=== PATIENT | female | born 1960 | race Caucasian/White ===

== ENCOUNTER 2019-09-29 05:52 | Inpatient (IN) ==
--- NOTE | 2019-09-14 12:09 | PAT Medication Instructions ---
Medication Instructions Date of Service September 14, 2019 Home Medications amlodipine 10 mg PO QAM 09/11/19 [History Confirmed 09/11/19] baclofen 20 mg PO DAILY PRN 09/11/19 [History Confirmed 09/11/19] bupropion HCl 150 mg PO BID 09/11/19 [History Confirmed 09/11/19] carbamazepine 100 mg PO BID 09/11/19 [History Confirmed 09/11/19] dextroamphetamine-amphetamine [Adderall] 30 mg PO BID 09/11/19 [History Confirmed 09/11/19] escitalopram oxalate [Lexapro] 20 mg PO QAM 09/11/19 [History Confirmed 09/11/19] irbesartan 300 mg PO QAM 09/11/19 [History Confirmed 09/11/19] omeprazole 40 mg PO QAM 09/11/19 [History Confirmed 09/11/19] oxycodone-acetaminophen 1 tab PO Q8H PRN 09/11/19 [History Confirmed 09/11/19] topiramate [Topamax] 100 mg PO HS 09/11/19 [History Confirmed 09/11/19] DO NOT take the morning of surgery baclofen 20 mg PO DAILY PRN 09/11/19 [History Confirmed 09/11/19] carbamazepine 100 mg PO BID 09/11/19 [History Confirmed 09/11/19] dextroamphetamine-amphetamine [Adderall] 30 mg PO BID 09/11/19 [History Confirmed 09/11/19] irbesartan 300 mg PO QAM 09/11/19 [History Confirmed 09/11/19] Take morning of surgery With a small sip of water, OTHERWISE NOTHING TO EAT OR DRINK AFTER MIDNIGHT: amlodipine 10 mg PO QAM 09/11/19 [History Confirmed 09/11/19] bupropion HCl 150 mg PO BID 09/11/19 [History Confirmed 09/11/19] escitalopram oxalate [Lexapro] 20 mg PO QAM 09/11/19 [History Confirmed 09/11/19] omeprazole 40 mg PO QAM 09/11/19 [History Confirmed 09/11/19] oxycodone-acetaminophen 1 tab PO Q8H PRN (okay to take up to 4 hours prior to [place] r[place] if needed) Take evening before surgery baclofen 20 mg PO DAILY PRN (if needed) bupropion HCl 150 mg PO BID 09/11/19 [History Confirmed 09/11/19] carbamazepine 100 mg PO BID 09/11/19 [History Confirmed 09/11/19] dextroamphetamine-amphetamine [Adderall] 30 mg PO BID 09/11/19 [History Confirmed 09/11/19] oxycodone-acetaminophen 1 tab PO Q8H PRN (if needed) topiramate [Topamax] 100 mg PO HS 09/11/19 [History Confirmed 09/11/19] Other Notes If you have any questions please call us at [phone] or [phone] or [phone] or [phone]
--- NOTE | 2019-09-15 10:44 | Anesthesiology Consultation ---
Date of Service September 15, 2019 Assessment & Plan (1) Encounter for pre-operative examination: Chart Review Chart Review: Acceptable Risk for Surgery and Patient seen in Pre Admission Testing Teaching & Discussion Pre-Anesthesia Teaching/Discussion Notes: Instructed NPO after midnight before surgery,except medications with 15 cc of water. Medication instructions provided according to the PAT guidelines. History Surgery Operation Date: 09/29/19 12:45 Proposed Procedures p C5-C7 Anterior Cervical Discectomy and Fusion, Possible C4-C5, Spinal Cord Monitoring - Bert Bender DO Height/Weight Height: 5 ft 4 in Weight: 110.5 kg Allergies Allergy/AdvReac Type Severity Reaction Status Date / Time cortisone Allergy Unknown Anaphylaxis Verified 09/11/19 11:49 Medications Home Medications Medication Instructions Recorded Confirmed Last Taken amlodipine 10 mg PO QAM 09/11/19 09/11/19 Unknown baclofen 20 mg PO DAILY PRN 09/11/19 09/11/19 Unknown bupropion HCl 150 mg PO BID 09/11/19 09/11/19 Unknown carbamazepine 100 mg PO BID 09/11/19 09/11/19 Unknown dextroamphetamine-amphetamine 30 mg PO BID 09/11/19 09/11/19 Unknown [Adderall] escitalopram oxalate [Lexapro] 20 mg PO QAM 09/11/19 09/11/19 Unknown irbesartan 300 mg PO QAM 09/11/19 09/11/19 Unknown omeprazole 40 mg PO QAM 09/11/19 09/11/19 Unknown oxycodone-acetaminophen 1 tab PO Q8H PRN 09/11/19 09/11/19 Unknown topiramate [Topamax] 100 mg PO HS 09/11/19 09/11/19 Unknown Past Medical History Medical History Anxiety Depression Fibromyalgia GERD (gastroesophageal reflux disease) Hx of kidney disease related to sepsis (2015)- improved/"resolved" per patient Hypertension IBS (irritable bowel syndrome) Migraine Obesity Osteoarthritis Urinary incontinence + bladder stimulator (stimulator battery per patient and won't be replaced until after surgery- Ramsey Caputo/OR made aware) Weakness left arm/hand Exercise / Class Metabolic Activity III < 4 Walking/Shop/Light housework Past Family History Family History Father Family history of diabetes mellitus Mother Family history of diabetes mellitus Sister Family history of diabetes mellitus Past Surgical History Surgical History History of carpal tunnel release of both wrists History of meniscectomy of left knee History of meniscectomy of right knee History of partial hysterectomy History of surgery BLADDER STIMULATOR Hx laparoscopic cholecystectomy Hx of cervical spine surgery Hx of section Hx of colonoscopy Past Anesthesia History No Hx of Anesthesia Complications and No Family Hx of Anesthesia Complications History of PONV No Hx of PONV and Hx of Motion Sickness STOP BANG Total 5 Social History Smoking Status: Current every day smoker tobacco type: cigarettes Smoking cigarettes per day: 10 PER DAY Do You Dip or Chew Tobacco: No Hx Alcohol Use: No Hx Substance Use: No Review of Systems URI symptoms with congestion-- improving. Patient denies chest pain, shortness of breath, reflux, palpitations. Physical Exam Vital Signs VITALS BP 144/75 P 98 TEMP 98.2 SP02 94%RA RESP 16 PHYSICAL Mildly decreased cervical extension 2/2 cervicalgia Full TMJ range of motion. TMD 3.5 finger breaths Mallampati Score 3 Dentition: missing molars Lungs: + crackles Cardiac: regular rate and rhythm, no murmurs noted Spine: normal Carotid arteries: negative bruit Extremities: no edema Testing Laboratory Results 09/15/19 10:56 09/15/19 10:56 PT 10.1 Seconds (9.0-12.0) 09/15/19 10:56 INR 1.0 (0.9-1.1) 09/15/19 10:56 APTT 23.2 Seconds (21.0-31.0) 09/15/19 10:56 Urine Color Dark Yellow 09/15/19 10:56 Urine Appearance Cloudy (Clear) A 09/15/19 10:56 Urine pH 5.5 (4.5-7.5) 09/15/19 10:56 Ur Specific Cost 1.029 (1.000-1.030) 09/15/19 10:56 Urine Protein 1+ (Negative) H 09/15/19 10:56 Urine Glucose (UA) Negative (Negative) 09/15/19 10:56 Urine Ketones Trace (Negative) H 09/15/19 10:56 Urine Nitrite Negative (Negative) 09/15/19 10:56 Ur Leukocyte Esterase Negative (Negative) 09/15/19 10:56 Urine WBC (Auto) 5-10 /hpf (0-5) H 09/15/19 10:56 Urine RBC (Auto) 5-10 /hpf (0-4) H 09/15/19 10:56 U Hyaline Cast (Auto) Not Reportable 09/15/19 10:56 U Epithel Cells (Auto) >30 /lpf (0-5) H 09/15/19 10:56 Urine Bacteria (Auto) Negative (Negative) 09/15/19 10:56 Blood Type A Positive 09/15/19 10:56 Antibody Screen NEGATIVE 09/15/19 10:56 Electrocardiogram Date: 09/15/19 Findings: + NSR @ (93) Chest X-Ray Date: 09/15/19 Findings: + NAD
--- NOTE | 2019-09-15 11:34 | XRay Report ---
XR chest Pre-admission PA/Lat CLINICAL HISTORY: 59 years-old Female presenting with preoperative assessment, cough and congestion. TECHNIQUE: PA and lateral views of the chest were obtained. COMPARISON: 08/07/2013. FINDINGS: Cardiomediastinal silhouette normal. Lungs and pleural spaces clear. Degenerative changes of the thor acic spine. Cholecystectomy clips noted. IMPRESSION: 1. No acute cardiopulmonary disease. ACT 112: Negative or not required by law. Electronically signed by: Jay Bhardwaj M.D. 09/15/2019 11:33 AM
[2019-09-15 11:57] LABS: Basophils # (auto) 0.04 K/uL (0-0.2); Basophils % (auto) 0.4 %; Eosinophils # (auto) 0.29 K/uL (0-0.5); Eosinophils % (auto) 2.7 %; Hematocrit (blood only) 43.1 % (37-47); Hemoglobin 14.4 g/dL (12.0-16.0); Immature Granulocytes # (auto) 0.04 K/uL (0.00-0.02); Immature Granulocytes % (auto) 0.4 %; Lymphocytes # (auto) 2.43 K/uL (1.2-3.4); Lymphocytes % (auto) 22.3 %; Mean Corpuscular Hemoglobin 29.9 pg (25-34); Mean Corpuscular Hgb Conc 33.4 g/dL (32-36); Mean Corpuscular Volume 89.4 fL (80-100); Mean Platelet Volume 9.2 fL (7.4-10.4); Monocytes # (auto) 0.64 K/uL (0.11-0.59); Monocytes % (auto) 5.9 %; Neutrophils # (auto) 7.45 K/uL (1.4-6.5); Neutrophils % (auto) 68.3 %; Platelet Count 343 K/uL (130-400); RDW Coefficient of Variation 12.8 % (11.5-14.5); RDW Standard Deviation 41.5 fL (36.4-46.3); Red Blood Count 4.82 M/uL (4.2-5.4); White Blood Count 10.89 K/uL (4.8-10.8)
[2019-09-15 12:04] LABS: BUN Creatinine Ratio 12.8 (10-20); Calcium 9.5 mg/dl (8.5-10.1); Creatinine Clr Calc Pharmacy 89.8 ml/min; Est GFR (African American) 89.4; Est GFR (Non-African American) 77.2; Potassium 3.8 mmol/L (3.5-5.1)
[2019-09-15 12:10] LABS: Appearance Urine Cloudy (Clear); Bacteria Urine Automated Negative (Negative); Blood Urine Negative (Negative); Color Urine Dark Yellow; Epithelial Cell Urine Auto >30 /lpf (0-5); Glucose Urine UA Negative (Negative); Ketones Urine Trace (Negative); Leukocyte Esterase Urine Negative (Negative); Nitrite Urine Negative (Negative); Protein Urine 1+ (Negative); Specific Gravity Urine 1.029 (1.000-1.030); Urobilinogen Urine Negative (Negative); pH Urine 5.5 (4.5-7.5)
[2019-09-15 12:15] LABS: Partial Thromboplastin Ratio 0.9; Partial Thromboplastin Time 23.2 Seconds (21.0-31.0); Prothrombin Time 10.1 Seconds (9.0-12.0)
[2019-09-15 12:17] LABS: Bilirubin Urine Negative (Negative); Ictotest Urine Negative (Negative)
--- NOTE | 2019-09-15 13:01 | Electrocardiogram Report ---
Test Reason : Blood Pressure : / mmHG Vent. Rate : 093 BPM Atrial Rate : 093 BPM P-R Int : 144 ms QRS Dur : 084 ms QT Int : 364 ms P-R-T Axes : 075 084 078 degrees QTc Int : 452 ms Normal sinus rhythm Normal ECG When compared with ECG of 07-AUG-2013 14:41, No significant change was found Confirmed by Nitesh Osborne ([id number]) on 09/15/2019 1:01:06 PM Referred By: Bert Bender Confirmed By:Nitesh Osborne
--- OUTSIDE RECORDS SUMMARY | 2019-09-29 05:59 | External Medical Summary | Continuity of Care Document ---
:1960 Author Name Suri Chavez, Provider Address Unavailable Unavailable , Care Team Providers Name Role Phone Paul Reich [email or web address] [place] HUMERA TAVARES Unavailable Unavailable Unavailable Unavailable Unavailable Assessments Assessed Problems:Urge incontinence of urine Problems Urge incontinence of urine (788.31) (N39.41) Fibromyalgia (729.1) (M79.7) Hypertension (401.9) (I10) Allergies and Adverse Reactions Cortizone-10 OINT (Allergy) Medications Excedrin Migraine TABS Refills: 0 TEGretol TABS Refills: 0 Dicyclomine HCl - 20 MG Oral Tablet Refills: 0 CeleXA TABS Refills: 0 Wellbutrin TABS Refills: 0 Oxycodone-Acetaminophen CAPS Refills: 0 Adderall 30 MG Oral Tablet Refills: 0 KlonoPIN TABS Refills: 0 Procedures History of Back Surgery Status: Complete d History of Section Status: Comp leted History of Hysterectomy Status: Complete d History of Foot Repair Status: Completed History of Knee Surgery Status: Complete d History of Cholecystectomy Laparoscopic Status: Completed Immunizations Immunizations not documented Family History Unknown Family Member Family history of Diabetes Mellitus (V18.0) Status: Active Comments: Family History Family history of Heart Disease (V17.49) Status: Active Comments: Family History Family history of Cancer Status: Active Comments: Famil y History Family history of Hypertension (V17.49) Status: Active Comments: Family History Brother Family history of malignant neoplasm of bone (V16.8) (Z80.8) Status: Active Mother Family history of malignant neoplasm of breast (V16.3) (Z80. 3) Status: Active Social History - Smoking Status Current every day smoker Plan of Treatment Planned Observations Planned Goals not documented Results No Known Results Results not documented Encounters Appointment; Paul Reich M.D. 05-Apr-2019 11:15 Encounter Diagnosis: Problem not documented
[2019-09-29] MEDS ORDERED: GABAPENTIN 600 MG DOSE PO SCH (06:00)
[2019-09-29] MEDS ORDERED: LR 15ML/HR IV SCH (06:00)
[2019-09-29] MEDS ORDERED: ACETAMINOPHEN 500 MG TAB PO SCH (06:00)
[2019-09-29] MEDS ORDERED: CEFAZOLIN 2000MG 2,000 MG/15 ML SYR IV SCH (06:00)
[2019-09-29] MEDS ORDERED: CeleBREX 200 MG CAP PO SCH (06:00)
[2019-09-29] MEDS ORDERED: PROPOFOL IV EMULSION 10 MG/ML 100 ML VIAL IV ONE (06:57)
[2019-09-29] MEDS ORDERED: BACITRACIN INJ 50,000 UNIT VIAL ONE (07:10)
[2019-09-29] MEDS ORDERED: PROPOFOL IV EMULSION 10 MG/ML 20 ML VIAL IV ONE (07:15)
[2019-09-29] MEDS ORDERED: LIDOCAINE HCL 2% 2 ML VIAL/AMP(20MG/ML) INFIL ONE (07:15)
[2019-09-29] MEDS ORDERED: MIDAZOLAM HCL 1 MG/ML 2ML VIAL ONE (07:16)
[2019-09-29] MEDS ORDERED: fentaNYL citrate 100 MCG/2 ML VIAL ONE ×2 (07:16→08:47)
[2019-09-29] MEDS ORDERED: fentaNYL citrate 100 MCG/2 ML VIAL IV PRN (07:20)
[2019-09-29] MEDS ORDERED: HYDROmorphone INJ 2 MG/ML SYR/VIAL IV PRN (07:20)
[2019-09-29] MEDS ORDERED: ePHEDrine sulfate 50 MG/ML AMP IV PRN (07:20)
[2019-09-29] MEDS ORDERED: ATROPINE SULFATE 0.1 MG/ML 10ML SYR IV PRN (07:20)
[2019-09-29] MEDS ORDERED: KETOROLAC 30 MG/ML VIAL IV PRN (07:20)
[2019-09-29] MEDS ORDERED: METOCLOPRAMIDE HCL INJ 5 MG/ML 2 ML VIAL IV PRN ×2 (07:20→11:47)
[2019-09-29] MEDS ORDERED: ONDANSETRON INJ 2 MG/ML 2 ML VIAL IV PRN ×2 (07:20→11:47)
[2019-09-29] MEDS ORDERED: DEXAMETHASONE SOD INJ 4 MG/ML VIAL IV PRN (07:20)
[2019-09-29] MEDS ORDERED: PROMETHAZINE HCL 12.5 MG in SODIUM CHLORIDE 0.9% 50 ML IV PRN ×2 (07:20→11:47)
--- NOTE | 2019-09-29 07:36 | History & Physical Bridge Note ---
Date of Service September 29, 2019 History & Physical Bridge Note I have examined the patient, reviewed the History & Physical and in the interval since the performance of the History & Physical I have noted the following changes of clinical significance: no changes noted
--- NOTE | 2019-09-29 07:38 | History & Physical Report ---
Date of Service September 29, 2019 Assessment & Plan (1) Cervical stenosis of spinal canal: C5-C7 anterior cervical discectomy and fusion, possible C4-5 Present on Admission?: Yes History of Present Illness Chief Complaint: Neck and arm pain Primary Care Provider: Gustavo Villasenor This is a 59-year-old female presents with chronic persistent neck and arm symptoms. After failing extensive course of nonoperative care she is here for surgical intervention. Allergies Allergy/AdvReac Type Severity Reaction Status Date / Time cortisone Allergy Unknown Anaphylaxis Verified 09/29/19 06:13 Home Medications Home Medications Medication Instructions Recorded Confirmed Type amlodipine 10 mg PO QAM 09/11/19 09/29/19 History baclofen 20 mg PO DAILY PRN 09/11/19 09/29/19 History bupropion HCl 150 mg PO BID 09/11/19 09/29/19 History carbamazepine 100 mg PO BID 09/11/19 09/29/19 History dextroamphetamine-amphetamine 30 mg PO BID 09/11/19 09/29/19 History [Adderall] escitalopram oxalate [Lexapro] 20 mg PO QAM 09/11/19 09/29/19 History irbesartan 300 mg PO QAM 09/11/19 09/29/19 History omeprazole 40 mg PO QAM 09/11/19 09/29/19 History oxycodone-acetaminophen 1 tab PO Q8H PRN 09/11/19 09/29/19 History topiramate [Topamax] 100 mg PO HS 09/11/19 09/29/19 History Past Med/Surg History Medical History Anxiety Depression Fibromyalgia GERD (gastroesophageal reflux disease) Hx of kidney disease related to sepsis (2015)- improved/"resolved" per patient Hypertension IBS (irritable bowel syndrome) Migraine Obesity Osteoarthritis Urinary incontinence + bladder stimulator (stimulator battery per patient and won't be replaced until after surgery- Ramsey Caputo/OR made aware) Weakness left arm/hand Surgical History History of carpal tunnel release of both wrists History of meniscectomy of left knee History of meniscectomy of right knee History of partial hysterectomy History of surgery BLADDER STIMULATOR Hx laparoscopic cholecystectomy Hx of cervical spine surgery Hx of section Hx of colonoscopy Family History Father Family history of diabetes mellitus Mother Family history of diabetes mellitus Sister Family history of diabetes mellitus Social History Preferred Language: Cuban Communication Ability: Effective Beliefs That Will Affect Care: None Current Living Situation: Spouse Feels Safe at Home: Yes Smoking Status: Current every day smoker Tobacco Type: cigarettes ; Cigarettes Per Day: 10 PER DAY ; Do You Dip or Chew Tobacco: No ; Second Hand Exposure: Yes ; Hx Alcohol Use: No Hx Substance Use: No Physical Exam Physical Exam: Patient alert and oriented neurologically intact. Results & Data Vital Signs (Past 12 Hours) Vital Signs Temp Pulse Resp BP Pulse Ox 09/29/19 06:15 37.3 C 96 H 20 159/92 H 98
[2019-09-29] MEDS ORDERED: ROCURONIUM BROMIDE 10 MG/ML 5 ML VIAL ONE ×3 (08:14→09:17)
[2019-09-29] MEDS ORDERED: HYDROmorphone INJ 2 MG/ML SYR/VIAL ONE (08:18)
[2019-09-29] MEDS ORDERED: GLYCOPYRROLATE 0.2 MG/ML VIAL ONE (09:17)
[2019-09-29] MEDS ORDERED: NEOSTIGMINE METHYLSULFATE 1 MG/ML 10ML VIAL ONE (09:17)
--- NOTE | 2019-09-29 09:45 | Operative Report ---
Post Operative Report Pre & Post Diagnosis Operation Date: 09/29/19 07:45 Pre-Op Diagnosis: Spinal Stenosis, Cervical Region Post-Op Diagnosis: Spinal Stenosis, Cervical Region I identified the patient and participated in the time-out.: Yes Procedure Operation Date: 09/29/19 07:45 Actual Procedures #1 anterior cervical discectomy with bilateral foraminotomies C5-6 C6-7. #2 anterior cervical arthrodesis C5-6 C6-7. #3 placement of Spira 6 mm cage at C5- 6 field with DBM and 7 mm cage at C6-7 filled with DBM. #4 application of wakefield plate and screws across C5-6 C6-7. Surgeon Bert Bender, DO Residential Nurse Kurt Leon Estimated Blood Loss 25 Findings See Below The patient is 5 foot 4 inches tall weighing over 111 kg with a BMI in excess of 42. The patient's body habitus created significant technical difficulty with exposure positioning and performing the actual procedure. This added at least 50% increase in operative time. Specimens None Indications This is a 59-year-old female presents above-mentioned diagnosis after failing extensive course of nonoperative care is here for surgical invention. Description of Procedure Patient was met with identified informed consent obtained. Patient was then taken to the operative suite underwent intubation placed in supine position the Mahesh table the head Reyes head ordered. All bony prominences well-padded eyes inspected to ensure no external pressure placed upon. This point the an terior cervical spine was prepped and draped in the normal sterile fashion. The assistance of fluoroscopy identified the C6 vertebral body and a transverse incision was placed on the right anterior aspect of the cervical spine aligns region. Sharp dissection with the assistance of bipolar electrocautery was performed down to and exposing the anterior cervical spine from C5-C7. Self- retaining retractor was placed. I performed a complete discectomy of C5-6 out to the uncovertebral joints bilaterally. [place] distracting pins were lysed assist in visualization. Removed all posterior annular fibers longitudinal ligament bilateral foraminotomies performed. Endplates were then burred to subcortical bleeding bone and a 6 mm spiral cage filled with DBM tapped in position. Distracting apparatus was removed I proceeded to C6-7. Again complete discectomy performed up to the operative joints bilaterally. [place] distracting pins again utilized. Removed all posterior annular fibers longitu dinal ligament bilateral foraminotomies performed. Endplates produce subcortical leading bone and a 7 mm Spira cage filled with DBM tapped in position. Distracting apparatus was removed all anterior osteophytes burred to a smooth cortical surface and a 5 complete screws applied with the assistance of fluoroscopy. Incision was then copiously irrigated explored to ensure no damage to surrounding structures remaining bleeding. 10 round EULALIA drain inserted. Incision was then closed with 1 Vicryl the fascia 2-0 Vicryl subcutaneously and 4 Monocryl for final closure. Steri-Strips dressings placed. Patient will continue PACU stable condition. Please note Kurt record present throughout the entire procedure note the patient positioning complex portions of the surgery and final skin closure. Lastly spinal cord monitoring was utilized that the procedure no changes noted in fact improvement of the left arm SSEPs at the end of the case. I attest to the content of the Intraoperative Record and any orders documented therein. Any exceptions are noted below.
--- NOTE | 2019-09-29 10:06 | Fluoroscopy Report ---
FL cervical 2-3V HISTORY: 59 years-old Female ACDF C5-C7 POSSIBLE C4-C5 chronic neck pain COMPARISON: None available TECHNIQUE: 2 spot fluoroscopic images of the cervical spine were obtained utilizing 14.3 seconds fluo roscopy time FINDINGS: Anterior plate and screw fusion hardware is noted at what appears to be the C5-C7 levels with discect cayetano changes at C5-C6 and C6-C7. The hardware appears intact and alignment appears satisfactory on the se images. Multilevel spondylitic spurring with facet arthrosis. Endotracheal tube noted along with a surgical drainage catheter. IMPRESSION: Fluoroscopic assistance as above. Please see operative report for further details. ACT 112: Negative or not required by law. The above report was generated using voice recognition software. It may contain grammatical, syntax o r spelling errors. Electronically signed by: Butch Abreu M.D. 09/29/2019 10:05 AM
--- NOTE | 2019-09-29 11:21 | Anesthesiology Progress Note ---
Date of Service September 29, 2019 Anesthesia Post Procedure Vital Signs Vital Signs: Temp Pulse Pulse Resp BP Pulse Ox 09/29/19 11:05 37 C 101 H 20 133/83 94 09/29/19 10:55 107 H 16 141/85 H 93 09/29/19 10:45 105 H 18 134/77 92 09/29/19 10:35 107 H 18 143/100 H 93 09/29/19 10:25 105 H 15 139/108 H 93 09/29/19 10:15 111 H 16 175/77 H 92 09/29/19 10:09 36.2 C L 109 H 20 174/96 H 92 09/29/19 06:15 37.3 C 96 H 20 159/92 H 98 Pain Intensity Left Arm: Pain Intensity: 8 Neck: Pain Intensity: 3 Transfer of Care Handoff Completed per policy Notes Mental Status: alert / awake / arousable and participated in evaluation Patient Amnestic to Procedure: Yes Nausea / Vomiting: adequately controlled Pain: adequately controlled Airway Patency, RR, SpO2: stable & adequate BP & HR: stable & adequate Hydration State: stable & adequate Anesthetic Complications: no major complications apparent
[2019-09-29] MEDS ORDERED: LORazepam 0.5 MG TAB PO PRN (11:47)
[2019-09-29] MEDS ORDERED: SOD PHOSPHATE/SOD BIPHOSPHATE ENEMA 132 ML BTL PR PRN (11:47)
[2019-09-29] MEDS ORDERED: LORazepam 0.5 MG/1 ML VIAL IV PRN (11:47)
[2019-09-29] MEDS ORDERED: DO NOT ADMINISTER PNEUMOCOCCAL VACCINE PRN (11:47)
[2019-09-29] MEDS ORDERED: HYDROmorphone INJ 0.5 MG/0.5 ML SYR IV PRN (11:47)
[2019-09-29] MEDS ORDERED: HYDROmorphone INJ 1 MG/ML SYRINGE IV PRN (11:47)
[2019-09-29] MEDS ORDERED: MAGNESIUM HYDROXIDE SUSP 30 ML UDC PO PRN (11:47)
[2019-09-29] MEDS ORDERED: RACEPINEPHRINE 2.25% NEBU SOLN 0.5 ML VIAL INH PRN (11:47)
[2019-09-29] MEDS ORDERED: ALUMINUM/MAGNESIUM SUSP 30 ML UDC PO PRN (11:47)
[2019-09-29] MEDS ORDERED: ACETAMINOPHEN 1,000 MG/100 ML VIAL IV PRN (11:47)
[2019-09-29] MEDS ORDERED: DEXAMETHASONE SOD PHOSPHATE 8 MG in SYRINGE 0 ML IV PRN (11:47)
[2019-09-29] MEDS ORDERED: DO NOT ADMINISTER FLU VACCINE PRN (11:47)
[2019-09-29] MEDS ORDERED: FAMOTIDINE 20 MG TAB PO PRN (11:47)
[2019-09-29] MEDS ORDERED: ACETAMINOPHEN 500 MG TAB PO PRN (11:47)
[2019-09-29] MEDS ORDERED: NALOXONE HCL 0.4 MG/1 ML VIAL/CARP IV PRN (11:47)
[2019-09-29] MEDS ORDERED: ONDANSETRON 4 MG OD TAB PO PRN (11:47)
--- NOTE | 2019-09-29 12:44 | Hospitalist Consultation ---
Date of Consultation September 29, 2019 Assessment & Plan (1) Cervical stenosis of spinal canal: POD #0 s/p ACDF of C5-C7 by Dr. Bender. - Pain control/wound management per primary service - EBL 25 ml, EULALIA with sanguinous drainage - repeat H&H in AM - Incentive spirometry, wean O2 as tolerated (2) Hypertension: - Resume outpatient irbesartan 300 mg daily and monitor (3) GERD (gastroesophageal reflux disease): - Continue outpatient PPI therapy (changing from omeprazole to pantoprazole due to formulary) (4) ADHD: - Continue outpatient Adderall (5) Fibromyalgia: Pain control per primary service. Holding Baclofen for now. (6) Depression: - Continue outpatient meds - mood stable (7) Anxiety: - Continue outpatient meds - stable DVT prophylaxis: SCDs Disposition: per primary service Follow-up with PCP, Dr. Gustavo Villasenor, at discharge. Patient seen and reviewed with collaborating physician, Dr. Morales. Plan of care discussed and as outlined above. Thank you for this consultation. We will continue to follow the patient with you. Care to be assumed in AM by Dr. Arce. [facility] is available 29/03 via pager at [phone]. Preston Parra PA-C Supervising Physician Co-Signing Physician Notes 59 y/o female with a PMH of cervical spondylosis with myelopathy/cervical DDD, HTN, IBS, anxiety, recurrent depression, bipolar d/o, lumbar disc disease w/ sciatica, ADHD, and fibromylagia who underwent ACDF of C5-C7 today Patient seen and examined Refer to detailed history by Preston Parra PA-C History significant for cervical stenosis with failed conservative management ROS was positive for sore throat after surgery, chronic cough, neck pain at op site and some LUE weakness and paraesthesiae. Physical exam notable for obesity, neck collar, reduced power in LUE 4/5 compared to right UE, drain insitu with sanguinous fluid in neck Cervical Spinal Stenosis S/P -Anterior cervical discectomy with bilateral foraminotomies C5-6 C6-7. -Anterior cervical arthrodesis C5-6 C6-7. -Placement of Spira 6 mm cage at C5-6 field with DBM and 7 mm cage at C6-7 filled with DBM. -Application of wakefield plate and screws across C5-6 C6-7. Estimated blood loss was 25cc. Currently hemodynamically stable Resume home antihypertensives Incentive spirometry. Wean off oxygen as tolerated Pain control per primary surgical team Other plan as detailed above History of Present Illness Reason for Consultation: Post-operative medical management Requesting Physician: Bert Bender DO Attending Physician: Bert Bender DO History of Present Illness This is a 59 y/o female with a PMH of cervical spondylosis with myelopathy/cervical DDD, HTN, IBS, anxiety, recurrent depression, bipolar d/o, lumbar disc disease w/ sciatica, ADHD, and fibromylagia who underwent ACDF of C5-C7 today by Dr. Bender. We have been consulted to assist with post-operative medical management. Pre-operative medical evaluation from PCP was reviewed. Currently pt is seen sitting up in bed, preparing to eat clear liquid lunch. She reports her pain is overall controlled although having discomfort in left shoulder. Denies chest pain, shortness of breath or dizziness. She does have a sore throat and mild dry cough post-operatively. QUINONEZ this morning but resolved now. No abdominal pain, nausea, vomiting. Has not yet urinated or passed gas since OR. Stable weakness and numbness in LUE. Meds reviewed - states that she was on low-dose aspirin previously but stopped it for unknown reason. Allergies Allergy/AdvReac Type Severity Reaction Status Date / Time cortisone Allergy Unknown Anaphylaxis Verified 09/29/19 06:13 Home Medications Home Medications Medication Instructions Recorded Confirmed Type amlodipine 10 mg PO QAM 09/11/19 09/29/19 History baclofen 20 mg PO TID PRN 09/11/19 09/29/19 History bupropion HCl 150 mg PO BID 09/11/19 09/29/19 History dextroamphetamine-amphetamine 30 mg PO BID 09/11/19 09/29/19 History [Adderall] escitalopram oxalate [Lexapro] 20 mg PO QAM 09/11/19 09/29/19 History irbesartan 300 mg PO QAM 09/11/19 09/29/19 History omeprazole 40 mg PO QAM 09/11/19 09/29/19 History oxycodone-acetaminophen 1 tab PO Q8H PRN 09/11/19 09/29/19 History topiramate [Topamax] 100 mg PO HS 09/11/19 09/29/19 History carbamazepine 400 mg PO BID 09/29/19 09/29/19 History Patient History Medical History (Updated 09/29/19 @ 13:01 by Tiffanie Parra PA-C) ADHD Anxiety Bipolar affective disorder Cervical stenosis of spinal canal Depression Fibromyalgia GERD (gastroesophageal reflux disease) Hx of kidney disease related to sepsis (2015)- improved/"resolved" per patient Hypertension IBS (irritable bowel syndrome) Migraine Obesity Osteoarthritis Sciatica Urinary incontinence + bladder stimulator (stimulator battery per patient and won't be replaced until after surgery- Ramsey Caputo/OR made aware) Weakness left arm/hand Surgical History History of carpal tunnel release of both wrists History of meniscectomy of left knee History of meniscectomy of right knee History of partial hysterectomy History of surgery BLADDER STIMULATOR Hx laparoscopic cholecystectomy Hx of cervical spine surgery Hx of section Hx of colonoscopy Family History Father Family history of diabetes mellitus Mother Family history of diabetes mellitus Sister Family history of diabetes mellitus Social History (Updated 09/29/19 @ 13:35 by Tiffanie Parra PA-C) Preferred Language: Honduran Communication Ability: Effective Beliefs That Will Affect Care: None Current Living Situation: Spouse Feels Safe at Home: Yes Smoking Status: Former smoker Tobacco Type: cigarettes ; Do You Dip or Chew Tobacco: No ; Second Hand Exposure: Yes ; Hx Alcohol Use: No Hx Substance Use: No Review of Systems Review of Systems: All systems reviewed & are unremarkable except as noted in HPI & below Constitutional: no fever, no chills and no weakness Eyes: no diplopia and no worsening vision Ear, Nose, Mouth, Throat: + sore throat; no dizziness and no dysphagia Respiratory: + cough; no chest congestion, no dyspnea, no pain on inspiration and no wheezing Cardiovascular: no chest pain, no palpitations, no lightheadedness and no edema Gastrointestinal: no abdominal pain, no bloating, no nausea and no vomiting Genitourinary: no dysuria and no hematuria Musculoskeletal: + neck pain (see HPI) Integumentary: no rash and no urticaria Neurologic: + localized weakness (LUE - reports unchanged from pre-op) and + paresthesia (left arm - ongoing); no seizure-like activity, no dizziness and no abnormal speech Psychiatric: + depression and + anxiety Physical Exam Constitutional: WD/WN, vitals as above + obese; no acute distress Eyes: + anicteric sclerae; no conjunctival abnormality ENMT: external ear and nose normal, oropharynx normal Neck: anterior neck with dressing C/D/I - plastic collar initially in place when I entered the room but pt removed to eat lunch (liquids). 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, on left 3/5); no cyanosis and no clubbing Skin: no rashes, warm and dry no jaundice Neurologic: moves all extremities Speech / Cognition: normal speech Psychiatric: A+Ox3, euthymic affect Results & Data Vital Signs (Past 12 Hours) Vital Signs Temp Pulse Pulse Resp BP Pulse Ox 09/29/19 12:29 36.7 C 100 H 20 149/89 H 97 09/29/19 11:55 36.9 C 100 H 20 136/89 95 09/29/19 11:51 110 H 18 91 09/29/19 11:05 37 C 101 H 20 133/83 94 09/29/19 10:55 107 H 16 141/85 H 93 09/29/19 10:45 105 H 18 134/77 92 09/29/19 10:35 107 H 18 143/100 H 93 09/29/19 10:25 105 H 15 139/108 H 93 09/29/19 10:15 111 H 16 175/77 H 92 09/29/19 10:09 36.2 C L 109 H 20 174/96 H 92 09/29/19 06:15 37.3 C 96 H 20 159/92 H 98 Laboratory Results Labs 09/15/19 09/15/19 09/15/19 10:56 10:56 10:56 WBC 10.89 H RBC 4.82 Hgb 14.4 Hct 43.1 MCV 89.4 MCH 29.9 MCHC 33.4 RDW Std Deviation 41.5 RDW Coeff of Carmen 12.8 Plt Count 343 MPV 9.2 Immature Gran % (Auto) 0.4 Neut % (Auto) 68.3 Lymph % (Auto) 22.3 [place] % (Auto) 5.9 Eos % (Auto) 2.7 Baso % (Auto) 0.4 Immature Gran # (Auto) 0.04 H Neut # (Auto) 7.45 H Lymph # (Auto) 2.43 [place] # (Auto) 0.64 H Eos # (Auto) 0.29 Baso # (Auto) 0.04 PT 10.1 INR 1.0 APTT 23.2 PTT Ratio 0.9 Sodium 140 Potassium 3.8 Chloride 106 Carbon Dioxide 30 Anion Gap 4.0 BUN 11 Creatinine 0.84 Est Cr Clr Drug Dosing 89.8 Est GFR ( Amer) 89.4 Est GFR (Non-Af Amer) 77.2 BUN/Creatinine Ratio 12.8 Glucose 123 H Calcium 9.5 Urine Color Urine Appearance Urine pH Ur Specific [place] Urine Protein Urine Glucose (UA) Urine Ketones Urine Blood Urine Nitrite Urine Bilirubin Urine Urobilinogen Ur Leukocyte Esterase Urine WBC (Auto) Urine RBC (Auto) U Hyaline Cast (Auto) U Epithel Cells (Auto) Urine Bacteria (Auto) Ur Renal Epithelial Cell Blood Type Antibody Screen Crossmatch 09/15/19 09/15/19 09/29/19 10:56 10:56 06:12 WBC RBC Hgb Hct MCV MCH MCHC RDW Std Deviation RDW Coeff of Carmen Plt Count MPV Immature Gran % (Auto) Neut % (Auto) Lymph % (Auto) [place] % (Auto) Eos % (Auto) Baso % (Auto) Immature Gran # (Auto) Neut # (Auto) Lymph # (Auto) [place] # (Auto) Eos # (Auto) Baso # (Auto) PT INR APTT PTT Ratio Sodium Potassium Chloride Carbon Dioxide Anion Gap BUN Creatinine Est Cr Clr Drug Dosing Est GFR ( Amer) Est GFR (Non-Af Amer) BUN/Creatinine Ratio Glucose Calcium Urine Color Dark Yellow Urine Appearance Cloudy A Urine pH 5.5 Ur Specific [place] 1.029 Urine Protein 1+ H Urine Glucose (UA) Negative Urine Ketones Trace H Urine Blood Negative Urine Nitrite Negative Urine Bilirubin Negative Urine Urobilinogen Negative Ur Leukocyte Esterase Negative Urine WBC (Auto) 5-10 H Urine RBC (Auto) 5-10 H U Hyaline Cast (Auto) Not Reportable U Epithel Cells (Auto) >30 H Urine Bacteria (Auto) Negative Ur Renal Epithelial Cell Not Reportable Blood Type A Positive A Positive Antibody Screen NEGATIVE NEGATIVE Crossmatch See Detail Diagnostic Findings Chest x-ray 09/15/19 - IMPRESSION: 1. No acute cardiopulmonary disease. Medications Administered Lactated Ringer's (Lr) 1,000 mls @ 100 mls/hr IV .Q10H OMARI Stop: 10/29/19 11:46 Last Admin: 09/29/19 12:54 Dose: 100 mls/hr Documented by: [id number] Oxycodone HCl (Roxicodone Immediate Rel) 5 - 10 mg PO Q4H PRN PRN Reason: Pain Stop: 10/13/19 11:46 Last Admin: 09/29/19 12:53 Dose: 10 mg Documented by: [id number] Discontinued Medications Acetaminophen (Tylenol) 1,000 mg PO PREOP OMARI Stop: 09/29/19 18:00 Last Admin: 09/29/19 06:34 Dose: 1,000 mg Documented by: [id number] Bacitracin (Bacitracin) Confirm Administered Dose 50,000 units .ROUTE .STK-MED ONE Stop: 09/29/19 07:11 Last Admin: 09/29/19 12:35 Dose: Not Given Documented by: [id number] Celecoxib (Celebrex) 200 mg PO PREOP OMARI Stop: 09/29/19 18:00 Last Admin: 09/29/19 06:35 Dose: 200 mg Documented by: [id number] Gabapentin (Neurontin) 600 mg PO PREOP OMARI Stop: 09/29/19 18:00 Last Admin: 09/29/19 06:35 Dose: 600 mg Documented by: [id number] Lactated Ringer's (Lr) 1,000 mls @ 15 mls/hr IV .Q24H OMARI Stop: 09/29/19 18:00 Last Infusion: 09/29/19 07:51 Dose: 0 mls/hr Documented by: [id number] Admin: 09/29/19 06:40 Dose: 15 mls/hr Documented by: [id number] Cefazolin Sodium (Ancef 2000mg) 2,000 mg in 15 mls @ 3.75 mls/min IV PREOP OMARI; Protocol Stop: 09/29/19 18:00 Last Admin: 09/29/19 07:51 Dose: 3.75 mls/min Documented by: [id number]
[2019-09-29] MEDS: OXYCODONE HCL IR 5 MG TAB (IMMEDIATE RELEASE) PO PRN ×3 (12:53→20:55)
[2019-09-29] MEDS: LACTATED RINGER'S 1,000 ML IV SCH ×2 (12:54→22:25)
[2019-09-29] MEDS: AMPHETAMINE ASP/SULF/DEXTRAMPH 10 MG TAB PO SCH (15:02)
[2019-09-29] MEDS: CEFAZOLIN 2000MG 2,000 MG/15 ML SYR IV SCH (17:34)
[2019-09-29] MEDS: BuPROPion SR 150 MG TABCR PO SCH (20:56)
[2019-09-29] MEDS: CARBAMAZEPINE 200 MG TABCR PO SCH (20:56)
[2019-09-29] MEDS ORDERED: CARBAMAZEPINE 100 MG TABCR PO SCH (21:00)
[2019-09-29] MEDS ORDERED: DOCUSATE SODIUM/SENNA 50/8.6MG TAB PO SCH (21:00)
[2019-09-29] MEDS ORDERED: TOPIRAMATE 100 MG TAB PO SCH (21:00)
[2019-09-30] MEDS: CEFAZOLIN 2000MG 2,000 MG/15 ML SYR IV SCH (00:30)
[2019-09-30] MEDS: OXYCODONE HCL IR 5 MG TAB (IMMEDIATE RELEASE) PO PRN ×3 (00:55→09:06)
[2019-09-30 05:51] LABS: Basophils # (auto) 0.02 K/uL (0-0.2); Basophils % (auto) 0.2 %; Eosinophils # (auto) 0.11 K/uL (0-0.5); Hematocrit (blood only) 37.1 % (37-47); Hemoglobin 12.5 g/dL (12.0-16.0); Immature Granulocytes # (auto) 0.03 K/uL (0.00-0.02); Immature Granulocytes % (auto) 0.3 %; Lymphocytes # (auto) 2.62 K/uL (1.2-3.4); Lymphocytes % (auto) 24.3 %; Mean Corpuscular Hemoglobin 30.2 pg (25-34); Mean Corpuscular Hgb Conc 33.7 g/dL (32-36); Mean Corpuscular Volume 89.6 fL (80-100); Monocytes # (auto) 0.97 K/uL (0.11-0.59); Neutrophils # (auto) 7.05 K/uL (1.4-6.5); Neutrophils % (auto) 65.2 %; Platelet Count 254 K/uL (130-400); RDW Coefficient of Variation 13.2 % (11.5-14.5); RDW Standard Deviation 43.3 fL (36.4-46.3); Red Blood Count 4.14 M/uL (4.2-5.4)
[2019-09-30 06:17] LABS: BUN Creatinine Ratio 20.9 (10-20); Calcium 8.6 mg/dl (8.5-10.1); Creatinine Clr Calc Pharmacy 91.6 ml/min; Est GFR (African American) 90.7; Est GFR (Non-African American) 78.3; Potassium 3.7 mmol/L (3.5-5.1)
[2019-09-30] MEDS: AMPHETAMINE ASP/SULF/DEXTRAMPH 10 MG TAB PO SCH (08:59)
[2019-09-30] MEDS ORDERED: AMLODIPINE BESYLATE 5 MG TAB PO SCH (09:00)
[2019-09-30] MEDS ORDERED: PANTOprazole 40 MG TAB PO SCH (09:00)
[2019-09-30] MEDS ORDERED: IRBESARTAN 150 MG TAB PO SCH (09:00)
[2019-09-30] MEDS ORDERED: ESCITALOPRAM OXALATE 20 MG TAB PO SCH (09:00)
[2019-09-30] MEDS: BuPROPion SR 150 MG TABCR PO SCH (09:01)
[2019-09-30] MEDS: CARBAMAZEPINE 200 MG TABCR PO SCH (09:01)
--- NOTE | 2019-09-30 09:41 | Hospitalist Progress Note ---
Date of Service September 30, 2019 Assessment & Plan (1) Cervical stenosis of spinal canal: s/p anterior cervical discectomy with bilateral foraminotomies of C5-C7 by Dr. Bender on 09/29/2019 (Actual Procedures #1 anterior cervical discectomy with bilateral foraminotomies C5-6 C6-7. #2 anterior cervical arthrodesis C5-6 C6-7. #3 placement of Spira 6 mm cage at C5-6 field with DBM and 7 mm cage at C6-7 filled with DBM. #4 application of wakefield plate and screws across C5-6 C6-7.) because of Post-Op Diagnosis of of Spinal Stenosis, Cervical Region -estimated blood loss at time of surgery is minimal of 25 ml -patient continues to have EULALIA drain from surgical incision site, management of J P drain as per orthopedics -has neck brace -Incentive spirometry as needed -patient is on room air. saturating well with the continuous pulse oximetry Possible Ulnar nerve dysfunction -patient shows hospital doctor of left hand of hand deviation suggestive of ulnar nerve dysfunction which she reports have been going on since June 2019 and has not improved after neck surgery -advised patient to continue follow up with orthopedic surgeon and that is symptoms do not improve over a period of time from neck surgery that she may need referral to neurology clinic for Electromyography (EMG) of left upper extremity (2) Hypertension: -on outpatient irbesartan 300 mg daily (3) GERD (gastroesophageal reflux disease): - Continue outpatient PPI therapy (changing from omeprazole to pantoprazole due to formulary) (4) ADHD: - Continue outpatient Adderall (5) Fibromyalgia: -pain appears controlled on current regimen (6) Depression: -Continue outpatient medication of carbamazepine, Lexapro, and topiramte (7) Anxiety: - Continue outpatient meds - stable DVT prophylaxis: SCDs Disposition: per primary service Follow-up with PCP, Dr. Gustavo Villasenor, at discharge. Subjective patient has neck brace. laying on the bed. patient is on room air. saturating well with the continuous pulse oximetry. she reports she has been able to ambulate on her own to the bathroom to urinate. denies bowel movement since the surgery. continues to have EULALIA drain from surgical incision site no chest pain, no shortness of breath, no palpitations. no abdomen pain. no nausea. no vomiting. no problems with urination. no headache. no dizziness patient shows hospital doctor of left hand of hand deviation suggestive of ulnar nerve dysfunction which she reports have been going on since June 2019 and has not improved after neck surgery. Review of Systems Review of Systems: All systems reviewed & are unremarkable except as noted in HPI & below Physical Exam Constitutional: comfortable Results & Data Vital Signs (Past 12 Hours) Vital Signs Temp Pulse Pulse Pulse Resp BP BP 09/30/19 09:13 36.5 C 91 H 18 122/75 09/30/19 07:13 36.4 C L 84 20 134/85 09/30/19 07:02 86 20 09/30/19 06:10 36.9 C 88 16 155/84 H 09/30/19 04:35 36.9 C 89 16 149/86 H 09/30/19 03:24 89 18 09/30/19 02:30 37.0 C 92 H 16 137/84 09/30/19 00:25 36.9 C 98 H 18 148/87 H 09/29/19 23:43 99 H 18 09/29/19 22:32 36.9 C 100 H 20 126/83 Pulse Ox 09/30/19 09:13 95 09/30/19 07:13 94 09/30/19 07:02 95 09/30/19 06:10 93 09/30/19 04:35 94 09/30/19 03:24 93 09/30/19 02:30 94 09/30/19 00:25 94 09/29/19 23:43 93 09/29/19 22:32 94
[2019-09-30] MEDS ORDERED: POLYETHYLENE (MIRALAX) 17 GM PACK PO SCH (09:45)
--- NOTE | 2019-09-30 10:46 | Discharge Summary ---
Date of Service September 30, 2019 Admission HPI Per Admitting Provider This is a 59-year-old female presents with chronic persistent neck and arm symptoms. After failing extensive course of nonoperative care she is here for surgical intervention. Principal Diagnosis Cervical spinal stenosis with radiculopathy Discharge Data Allergies Allergy/AdvReac Type Severity Reaction Status Date / Time cortisone Allergy Unknown Anaphylaxis Verified 09/29/19 06:13 Consultations 09/29/19 11:47 Consult Hospitalist Routine Procedures Performed Operation Date: 09/29/19 07:45 Actual Procedures p C5-C7 Anterior Cervical Discectomy and Fusion, Spinal Cord Monitoring - Bert Bender DO Ordered Studies 09/29/19 07:45 FL cervical 2-3V Routine FL fluoroscopy <1hr Routine Hospital Course (1) Cervical stenosis of spinal canal: Patient underwent anterior cervical discectomy and fusion tolerated this well was taken to orthopedic for postoperative. Postop day 1 she was swallowing well no hoarseness. She had reasonable strength to the left upper extremity but still struggling with numbness and tingling. The symptoms have been present for several months prior to surgery. At this time we will allow her to discharge home. Discharge orders instructions from the chart for further review. Total Time Total Time Spent Total Time Spent (In Minutes): 20 minutes Discharge Plan Discharge Items Patient Disposition: Home - Self-Care Reason For Visit: Spinal Stenosis, Cervical Region Discharge Diagnosis: Cervical spinal stenosis with radiculopathy Activity: As commented below Non-emergency contact: Primary Care Provider Call non-emergency contact if: you have any medication questions Follow-up/Referrals: Gustavo Villasenor [Primary Care Provider] - Diet: Regular Addtl Attending Provider Instructions: ACTIVITY RECOMMENDATIONS: SELF CARE INSTRUCTIONS AFTER CERVICAL FUSIONS 1. No smoking. Smoking drastically decreases the chance of a solid fusion. 2. No bending, lifting more than 5 pounds, or twisting (roll like a log when turning in bed). 3. You may shower 3 days after surgery. Thoroughly dry wound. Do not soak in the tub. 4. Cervical collar: Must be worn at all times including sleeping. You may remove the brace only to bath, eat and if you are sitting in a recliner. 5. Please walk as much as you can for exercise. Gradually increase the distance that you walk as your endurance increases. SPECIAL CARE INSTRUCTIONS: VERY IMPORTANT TO READ AND REVIEW A. Do not take any anti-inflammatory medications (i.e. Indocin, Advil, Aspirin, Naprosyn, Aleve, Motrin, etc.) as these may inhibit the chance of a solid fusion. Tylenol is okay to take. B. Your surgical incision has been closed with a cosmetic suture under the skin that will dissolve in about 6 weeks. In 14 days, you can use a pair of clean scissors and cut the suture that is left outside of the skin at the ends of your incision. C. Complications are uncommon, but please contact us if you have any signs or symptoms of: 1. wound infection (fever higher than 102.5 degrees F, redness, separation of wound, drainage, or increasing pain from the incision) 2. blood clots in legs (pain, swelling, redness and warmth in legs) 3. urinary tract infection (fever higher than 102.5 degrees, burning upon urination or increased frequency of urination) 4. nerve problems (inability to walk on your toes or heels, numbness, loss of bowel or bladder control) 5. any other symptoms that concern you. D. Please call the office at if you have any concerns or questions about your operation or recovery. MANAGING PAIN AFTER SPINAL SURGERY 1. Narcotic medication is intended for short-term use and will be provided for surgical pain. Surgical pain usually lasts for a period of 4-6 weeks. Narcotic medication includes Percocet, Vicodin, Darvocet, Tylenol #3 or Lortab. 2. Longer-term pain is more appropriately treated with non-narcotic medication such as Tylenol ES. 3. Muscle spasm is not appropriately treated with narcotics. Muscle relaxers such as Soma, Flexeril or Skelaxin can be used along with Tylenol ES. 4. Remember that we all live with some "aches and pains". This is not unusual or uncommon after an injury or as we get older. 5. We will provide appropriate medication within the normal guidelines of their prescribed use. We will also be very cautious and aware of potential abuse and extended duration of patients' medication needs. 6. Please allow 2-3 days to process refills. Prescriptions will not be mailed but must be picked up at the office. FOLLOW UP VISIT: Keep your scheduled follow-up appointment. Any questions, please call the office at . Addtl Chief Service Dispatcher Provider Instructions: Possible Ulnar nerve dysfunction -patient shows hospital doctor of left hand of hand deviation suggestive of ulnar nerve dysfunction which she reports have been going on since June 2019 and has not improved after neck surgery -advised patient to continue follow up with orthopedic surgeon and that is symptoms do not improve over a period of time from neck surgery that she may need referral to neurology clinic for Electromyography (EMG) of left upper extremity Pending Studies at Discharge: No Stand-Alone Forms: [facility], Smoking Cessation Medications and DC Order Prescriptions: New oxycodone 5 mg tablet 5 mg PO Q6H PRN (Reason: pain, severe) Qty: 20 RF: 0 Continued bupropion HCl 150 mg Tablet Sustained-Release 12 Hr 150 mg PO BID RF: 0 dextroamphetamine-amphetamine [Adderall] 30 mg Tablet 30 mg PO BID RF: 0 escitalopram oxalate [Lexapro] 20 mg Tablet 20 mg PO QAM RF: 0 omeprazole 40 mg Capsule,Delayed Release(Dr/Ec) 40 mg PO QAM RF: 0 baclofen 20 mg Tablet 20 mg PO TID PRN (Reason: MUSCLE SPASMS) RF: 0 oxycodone-acetaminophen 10-325 mg Tablet 1 tab PO Q8H PRN (Reason: Pain) RF: 0 topiramate [Topamax] 100 mg Tablet 100 mg PO HS RF: 0 amlodipine 10 mg Tablet 10 mg PO QAM RF: 0 irbesartan 300 mg Tablet 300 mg PO QAM RF: 0 carbamazepine 400 mg tablet extended release 12 hr 400 mg PO BID RF: 0 Discharge Orders: Discharge Order (Routine); Ordered 09/30/19 Ordered By: Bert Bender Admission Data Admit Date/Time: 09/29/19 07:44 Attending Provider: Bert Bender Admit Provider: Bert Bender Primary Care Provider: Gustavo Villasenor Other Providers: Virgil Olmos
[2019-10-01] MEDS ORDERED: bisacodyL 10 MG SUPP PR PRN (09:46)
== END 2019-09-30 11:50 | disposition home or self-care (01) | DRG 472 ==
LOC: ASU 05:52 → 3E 07:44